=== PATIENT | female | born 1955 | race Caucasian/White ===

== ENCOUNTER 2022-08-11 23:28 | Emergency (ER) | payer MEDICAID ==
[~2022-08-11] VITALS: Ht 157.5 cm; Wt 148.0 kg
[2022-08-12] MEDS ORDERED: ACETAMINOPHEN WITH CODEINE 300/30MG TABLET PO ONE (00:45)
[2022-08-12] MEDS ORDERED: CEPHALEXIN 250MG CAPSULE PO ONE (00:45)
[2022-08-12 00:53] LABS: BASOPHILS % 0.3 % (0.0-2.0); EOSINOPHILS % 2.3 % (0.0-5.0); HEMATOCRIT. 33.1 % (36.0-48.0); HEMOGLOBIN. 10.9 g/dL (12.0-16.0); LYMPHOCYTES % 13.5 % (20.0-50.0); MEAN CORPUSCULAR HEMOGLOBIN 27.2 pg (28.0-32.0); MEAN CORPUSCULAR VOLUME 82.5 fL (81.0-99.0); MEAN PLATELET VOLUME 8.6 fl (7.4-10.4); MONOCYTES % 6.3 % (2.0-8.0); NEUTROPHILS % 77.6 % (40.0-76.0); PLATELET 334 x1000/uL (130-400); RED BLOOD CELL COUNT 4.01 mill/uL (4.2-5.4); RED CELL DISTRIBUTION WIDTH 15.7 % (11.6-14.6)
[2022-08-12 01:00] LABS: CHLORIDE 97 mEq/L (98-107)
[2022-08-12 01:33] VITALS: BP 117/55
[2022-08-12] MEDS ORDERED: CEPH500C2 MT (01:53)
[2022-08-12] MEDS ORDERED: MUPI1OIN4 TP (01:53)
[2022-08-12] MEDS ORDERED: ACET-2708 MT (01:53)
[2022-08-12] MEDS ORDERED: CYCL10TA21 MT (01:53)
== END 2022-08-12 02:03 | disposition home or self-care (01) ==
LOC: ER 23:38
DX: L03.116 Cellulitis of left lower limb (principal); L03.115 Cellulitis of right lower limb; G47.62 Sleep related leg cramps; E11.9 Type 2 diabetes mellitus without complications; I11.0 Hypertensive heart disease with heart failure; I50.9 Heart failure, unspecified; I51.7 Cardiomegaly; Z79.01 Long term (current) use of anticoagulants
CPT/HCPCS: 36415; 80053; 83880; 85025; 93970; 99284